=== PATIENT | female | born 1970 | race Caucasian/White ===

== ENCOUNTER → 2018-08-09 | Outpatient (REF) | payer OTHER ==
[~2018-08-09] MED LIST: AUGMENTIN875TAB PO; FLEXERIL5 M1 PO; LEVOTHYROXIN125 MCG PO; MUPIROCIN2 % EX; SMZ-TMP DS1 TAB PO; SYNTHROID112 MCG PO
[2018-08-09 09:33] LABS: HEMATOCRIT 40.2 % (37.0-47.0); HEMOGLOBIN 13.6 g/dl (12.0-16.0); IMMATURE GRANULOCYTES 0.4 % (0.0-5.0); MEAN CELL VOLUME 84.3 fL CALC (80.0-100.0); MEAN CORPUSCULAR HGB 28.5 pG CALC (26.0-32.0); MEAN CORPUSCULAR HGB CONC 33.8 g/L CALC (32.0-36.0); NEUT# 3.25 thou/uL (2.00-7.15); RED BLOOD COUNT 4.77 mill/uL (4.20-5.60); RED CELL DISTRI WIDTH 12.5 % (11.5-15.5)
[2018-08-09 10:09] LABS: ALBUMIN 4.5 g/dL (3.2-5.0); ALKALINE PHOSPHATASE 98 u/l (38-126); ANION GAP 14 (6-22 (CALC)); BILIRUBIN, TOTAL 0.7 mg/dL (0.0-1.4); BUN 10 mg/dL (7-17); BUN/CREATININE RATIO 14 (12-20 (CALC)); CALCULATED LDLCHOLESTEROL 112 mg/dL (62-129 (CALC)); CARBON DIOXIDE 30 mmol/l (22-30); CHLORIDE 100 mmol/l (95-108); CHOLESTEROL HDL RATIO 2.8 (<4.4 (CALC)); CREATININE 0.7 mg/dL (0.5-1.0); GFR > 60 ML/MIN (>=60 (CALC)); GFR FOR AFR.AMER. > 60 ML/MIN (>=60 (CALC)); HDL CHOLESTEROL 70 mg/dL (>=40); POTASSIUM 3.9 mmol/l (3.5-5.1); SGOT/AST 26 u/l (14-36); SODIUM 140 mmol/l (137-146); TOTAL CHOLESTEROL 196 mg/dl (0-199); TOTAL PROTEIN 7.2 g/dL (6.3-8.2); TOTAL TRIGLYCERIDES 69 mg/dl (30-149); VLDL CHOLESTROL 14 mg/dl (1-41 (CALC))
[2018-08-09 10:33] LABS: TSH, 3RD GENERATION 1.38 uIU/mL (0.47 - 4.68)
== END | disposition home or self-care (01) | DRG 951 ==
LOC: LAB 09:17
PROVIDERS: ATTEND Family Medicine
DX: Z00.00 Encounter for general adult medical examination without abnormal findings (principal)

== ENCOUNTER → 2018-09-13 | Outpatient (REF) ==
[2018-09-13 12:04] LABS: CHOLESTEROL HDL RATIO 2.7 (<4.4 (CALC))
== END | disposition home or self-care (01) | DRG 951 ==
LOC: LAB 10:26
PROVIDERS: ATTEND Family Medicine
DX: Z02.6 Encounter for examination for insurance purposes (principal)